=== PATIENT | male | born 1970 | race Caucasian/White ===

== ENCOUNTER 2022-04-28 10:56 | Outpatient (CLI) | payer BC, SELFPAY ==
--- NOTE | 2022-04-28 09:45 | DI.RAD_ITS ---
Exam(s) XR KNEE LT 3V AP,LAT,KEVIN EXAM: XR KNEE LT 3V AP,LAT,KEVIN CLINICAL HISTORY: left knee pain. TECHNIQUE: 2D digital imaging was performed. COMPARISON: No exams were available for comparison FINDINGS: 3 views Left knee-three views There is no evidence of fracture nor prominent joint effusion. There is significant osteoarthritic d egenerative changes evident in all 3 compartments. Some joint space narrowing and marginal osteophyt es noted. Most prominent in the patellofemoral compartment but mediolateral compartments also signif icantly affected. No osseous lesions. IMPRESSION: Osteoarthritic degenerative changes. DATA REPOSITORY: RADIATION DOSE DELIVERED:
== END 2022-04-28 10:57 | disposition home or self-care (01) ==
LOC: DIORS 10:57
PROVIDERS: Visit Provider Student in an Organized Health Care Education/Training Program
DX: M17.12 Unilateral primary osteoarthritis, left knee (principal)
CPT/HCPCS: 73562

== ENCOUNTER 2023-12-16 03:33 | Outpatient (CLI) | payer BC, SELFPAY ==
[2023-12-16 11:42] LABS: Hemoglobin A1C 5.3 % (<5.7)
[2023-12-16 12:19] LABS: Calculated LDL 144 mg/dL (<100); Cholesterol 212 mg/dL (<200); HDL Cholesterol 53 mg/dL (40-60); Triglyceride 79 mg/dL (<150)
[2023-12-16 22:25] LABS: PSA, Screening 0.6 ng/mL (<=3.5)
== END 2023-12-16 03:34 | disposition home or self-care (01) ==
PROVIDERS: PCP Nurse Practitioner Family; Visit Provider Nurse Practitioner Family
DX: Z12.5 Encounter for screening for malignant neoplasm of prostate (principal); Z13.220 Encounter for screening for lipoid disorders; Z13.1 Encounter for screening for diabetes mellitus
CPT/HCPCS: 36415; 80061; 84153; 83036

== ENCOUNTER 2024-05-29 08:12 | Day surgery (SDC) | payer BC, SELFPAY ==
--- NOTE | 2024-05-28 19:14 | W.PREOPHP ---
Assessment and Plan Assessment and plan (1) Encounter for screening colonoscopy: Status: Acute Assessment and plan: we reviewed the plan for a screening colonoscopy today, and Paul had the chance to ask any questions regarding the procedure. We discussed the risks and the benefits and we can proceed with colonoscopy. History of Present Illness History of Present Illness Chief Complaint: Screening colonoscopy Narrative: 53 y/o male with history of obesity presents for colonoscopy screening pre-op. He denies a family history of colon cancer. He denies any changes in bowel habits including bloody or black tarry stools, abdominal pain, diarrhea or constipation. He denies constitutional symptoms. He denies chest pain, palpitations, dyspnea or dyspnea with exertion. He denies prior history or family history of adverse reactions or complications with anesthesia. The patient denies any history of stroke, [place], seizures, bleeding or clotting disorders. He denies having any implanted metal in his body. Since his last office encounter, he had no significant interval changes to the history of [facility] All Active Problems Encounter for screening colonoscopy (Acute) Herpes keratitis of eye (Acute) Obesity, Class III, BMI 40-49.9 (morbid obesity) (Acute) Arthritis of knee, left (Acute) Surgical History History of hand surgery Family History Mother Hypertension Stroke Father Heart disease Maternal Grandfather Alcohol use disorder Social History Smoking/Tobacco Use Status: Never Second Hand Exposure: Yes Smoking risk assessment performed?: Yes Alcohol Intake: current Alcohol Intake frequency: a few times a month Alcohol type: beer Drug use: Never Substance use type: does not use Adopted: No Caregiver/Support person: No Foster care: No Household members: spouse, family and children Housing: house Number of Children: 2 Communication Needs: None Education Level: high school Details: diploma Do you need help understanding health information?: Never 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 Sexually active: Yes Do you think of yourself as: straight/heterosexual Current gender identity: male What is your relationship status?: How often do you talk on the phone with friends or family?: three or more times per week How often do you get together with friends or relatives?: once per week Do you belong to any clubs or organized social groups?: yes Panel score (0-1 are the most socially isolated patients): 3 What type of physical activity do you participate in: regular exercise Duration: 15-30 minutes/day Frequency: 3-4 times per week Oriana/Anabaptist: Non tenriism Special oriana needs: No Seatbelt use: always Helmet use: Yes Drive intox 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 w/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 Drive intox or w/intox racecar driver: rarely Firearms in home: Yes Firearms unloaded and locked: Yes Do you feel safe at home: Yes Do you feel safe in your relationship?: Yes Victim of physical abuse: No Victim of emotional abuse: No Victim of sexual abuse: No Additional Social history: [facility] Meds Allergies and Home Medications Allergies Allergy/AdvReac Type Severity Reaction Status Date / Time erythromycin base Allergy Mild Hives Verified 05/29/24 08:23 (Erythromycin Base) Home Medications ?Medication ?Instructions ?Recorded ?Confirmed ?Type valacyclovir 500 mg tablet 500 mg PO DAILY 12/01/23 05/29/24 History Exam Const General: cooperative, healthy appearing and not in acute distress Neck Neck: normal visual inspection, no lymphadenopathy and supple Resp Effort & Inspection: normal respiratory effort Auscultation: clear to auscultation bilaterally Cardio Jugular venous pressure: no JVD Rate: regular rate Rhythm: regular rhythm Heart Sounds: S1 normal and S2 normal GI Inspection: normal to inspection Palpation: soft, no guarding, no hernias and nontender Percussion: normal to percussion Auscultation: normal bowel sounds Neuro General: patient alert, patient awake and patient oriented x3 Psych Appearance: grossly normal
--- NOTE | 2024-05-28 19:16 | W.PM.DSUDISC ---
Date of service: 05/29/24 Time of Service: 10:05 Discharge Plan Disposition Patient Disposition: Home Condition: Good Discharge Details Reason For Visit: screening colonoscopy Attending Provider: Pablo Neal Primary Care Provider: Bon Mckeon Home Meds and New Rx's Prescriptions: Continued valacyclovir 500 mg tablet 500 mg PO DAILY Discontinued bisacodyl [Dulcolax (bisacodyl)] 5 mg tablet,delayed release (DR/EC) 5 mg PO ONCE Qty: 4 0RF Rx Instructions: Take per colonoscopy instructions provided by ordering providers office polyethylene glycol 3350 17 gram/dose powder 17 g PO ONCE Qty: 238 0RF Rx Instructions: Take per colonoscopy instructions provided by ordering providers office Discharge Instructions Additional Instructions: Paul, we were able to complete your colonoscopy today without any difficulty. Your prep was excellent, and I could see everything just fine. I did not see any signs of tumors, polyps, or anything worrisome at all. With a negative screening colonoscopy today, you are good for 10 years before your next colonoscopy. If you have any questions at all, please do not hesitate to call or ask at any point. 1. If tolerated, consume a soft, low fiber diet for 1-2 days. 2[address] Do not drive, drink alcohol, operate machinery, make critical decisions, or do activities that require coordination or balance for 24 hours. 3. Because air was put into your colon during the procedure, expelling air from your rectum (passing gas or farting) is normal. 4. You may not have a bowel movement for 1-3 days because of the colonoscopy prep. This is normal. 5. Go directly to the emergency room if you notice any of the following: Develop chills (warm to touch), or if you have a thermometer and your temperature is above 101 Difficulty breathing or difficultly swallowing Persistent vomiting Severe abdominal pain, other than gas cramps Severe chest pain Black, tarry stools Any bleeding ? exceeding one tablespoon 6. Call your physician if the site where your intravenous was started becomes red, swollen, painful, and warm to touch. 7. Your physician has reviewed your pre-procedure medications. Please continue to take those medications as previously ordered. You will be given specific information/education regarding any changes to your medications before leaving. Activity:: Activity as Tolerated Diet:: As Tolerated Discharge Orders Discharge Orders: Discharge Order (Routine); Ordered 05/28/24 Ordered By: Pablo Neal DS: Diagnosis Discharge Diagnosis (1) Encounter for screening colonoscopy: Start date: 05/29/24 Status: Acute Asessment and Plan: Negative screening colonoscopy
--- NOTE | 2024-05-28 19:19 | W.COLOREPORT ---
Date of service: 05/29/24 Time of Service: 10:08 Colonoscopy Report Date of procedure: 05/29/24 Pre-op diagnosis general: screening colonoscopy Post-op diagnosis procedure note: other (Negative screening colonoscopy) Procedure: colonoscopy Surgeon: Pablo Neal Anesthesia Type: General:No Airway Estimated blood loss (mL): 0 Pathology: none sent Complications: None Disposition: same day Indications: Daren is a 53 year old man who needs a screening colonoscopy Prep: Miralax/Dulcolax Procedure Start Time: 09:43 Procedure End Time: 09:55 Retraction Time: 7 Findings: Normal colonoscopy Procedure Description: After the induction of anesthesia, and with the patient in left lateral decubitus position, I began by performing an external anorectal exam.? Perineum and skin were normal, as was the anal verge.? There was no evidence of external hemorrhoids.? Next, I performed a digital rectal exam.? I did not appreciate any abnormal findings.? Next, I advanced a colonoscope into the rectal vault.? I performed retroflexion.? This appeared normal.? Using insufflation, I then advanced the colonoscope beyond the rectal folds and into the sigmoid colon before advancing towards the cecum.? The scope was noted to be in the cecum by identification of the ileocecal valve and appendiceal orifice.? I then began withdrawing the colonoscope using repeated irrigation as necessary for full evaluation of the colonic mucosa. ?Once the scope was withdrawn to the level of the rectum, great care was taken to examine portions of the rectal folds.? I did not see any signs of tumors, polyps, or any other worrisome pathology. the scope was withdrawn and the patient was brought to the same-day surgery recovery unit as the anesthetic wore off. ?The findings and instructions were shared with the patient prior to discharge. [place] Bowel Prep [place] Bowel Prep Right Colon: 2 Left Colon: 3 Transverse Colon: 3 Total Score: 8
[2024-05-29 08:16] VITALS: BP 124/89; PULSE 84; RESP 16; TEMP 36.6; O2SAT 99
[2024-05-29] MEDS: Lactated Ringers 1,000 ML 80 ML IV (08:39)
--- NOTE | 2024-05-29 09:31 | W.ANESPRE ---
General Info Date of Service Date Performed: 05/29/24 Height: 5 ft 11 in Weight: 139.253 kg Body Mass Index (BMI): 42.8 Surgical Procedure: Operation Date: 05/29/24 09:50 Proposed Procedure Side Surgeon devaughn Neal MD Meds Allergies and Home Medications Allergies Allergy/AdvReac Type Severity Reaction Status Date / Time erythromycin base Allergy Mild Hives Verified 05/29/24 08:23 (Erythromycin Base) Home Medication ?Medication ?Instructions ?Recorded valacyclovir 500 mg tablet 500 mg PO DAILY 12/01/23 Current Visit Medications: Current Medications Generic Name Dose Route Start Last Admin Trade Name Freq PRN Reason Stop Dose Admin Ringer's Solution 1,000 mls @ 80 mls/hr 05/29/24 06:00 05/29/24 08:39 IV 06/25/24 23:59 80 mls/hr INFUSION OC Administration IV Miscellaneous Supplies 1 each 05/29/24 06:00 Iv Access IV 06/25/24 23:59 DIRECTED OC Ondansetron HCl 4 mg 05/28/24 19:21 Ondansetron 4 Mg/2 Ml Vial IVP 06/27/24 19:20 Q4H PRN PRN Nausea / Vomiting Sodium Chloride 0 ml 05/29/24 06:00 Normal Saline Flush 10 Ml Syr IV 06/25/24 23:59 PRN PRN Sodium Chloride 0 ml 05/29/24 06:00 Normal Saline 10 Ml Vial IJ 06/25/24 23:59 DIRECTED PRN Sterile Water 0 ml 05/29/24 06:00 Water,Injection,Sterile 10 Ml Vial IJ 06/25/24 23:59 DIRECTED PRN PFSH Active Problems Active Problems: Problem Status Onset Code Encounter for screening colonoscopy Acute Z12.11 Herpes keratitis of eye Acute B00.52 Obesity, Class III, BMI 40-49.9 (morbid obesity) Acute E66.01 Arthritis of knee, left Acute M17.12 Surgical History Surgical History History of hand surgery Tobacco Smoking/Tobacco Use Status: Never Passive smoking exposure: Yes Second hand exposure: Yes Alcohol Alcohol Intake: current Alcohol intake frequency: a few times a month Alcohol type: beer Substance Use Substance use: Never Substance use type: does not use Vital Signs and Lab Results Vital Signs Most Recent Vital Signs in EMR: Most Recent Vital Signs Temp Pulse Resp BP Pulse Ox 36.6 C 84 16 124/89 99 05/29/24 08:16 05/29/24 08:16 05/29/24 08:16 05/29/24 08:16 05/29/24 08:16 Lab Results Blood Type / Crossmatch: No Data to Display Complete Blood Count: No Data to Display Complete Metabolic Panel: No Data to Display Liver Function Panel: No Data to Display Coagulation Panel: No Data to Display Cardiac Panel: No Data to Display Arterial Blood Gas: No Data to Display Venous Blood Gas: No Data to Display Pancreas Panel: No Data to Display Thyroid Panel: No Data to Display Infectious Disease: No Data to Display Blood Cultures: No Data to Display Toxicology Panel: No Data to Display Anesthesia Assessment and Plan Anesthesia History Personal History: No History of Anesthesia Complications Family History: No Family History of Anesthesia Complications Exercise Tolerance Exercise Tolerance: Metabolic Equivalents>4 Pertinent Negatives Pertinent Negatives: No Symptoms of GERD Cardiac & Pulmonary Exam Cardiac Exam: Normal S1/S2 Heart Sounds Pulmonary Exam: Clear Bilateral Breath Sounds Implantable Cardiac Device Does patient have a Pacemaker or an ICD?: No Airway Exam Known Difficult Airway: No Mallampati Class: 2 Mouth Opening: Normal (> 3cm) Thyromental Distance: Greater than 3 cm Neck Range of Motion: Full ROM Neck Circumference: Normal Teeth Condition: Normal Dentition ASA Classification ASA Score: ASA 2 Emergency Case?: No NPO Status NPO Status: NPO Clears >2 hours, Solids >8 hours Anesthesia Plan Resuscitation Status: Full Code Anesthesia Technique: General Anesthesia Airway Planned: Natural Airway Monitors Used: Standard Monitors
[2024-05-29 09:33] VITALS: BMI 42.8
[2024-05-29 10:00] VITALS: BP 96/78; PULSE 85; RESP 16; TEMP 36.9; O2SAT 96
--- NOTE | 2024-05-29 10:11 | W.ANESPOSTOP ---
Postoperative Evaluation Date, Time and Location Date Performed: 05/29/24 Time Performed: 10:11 Patient Location: Day Surgery Unit Vital Signs Most Recent Imported Vital Signs: Most Recent Vital Signs Temp Pulse Resp BP Pulse Ox 36.9 C 85 16 96/78 L 96 05/29/24 10:00 05/29/24 10:00 05/29/24 10:00 05/29/24 10:00 05/29/24 10:00 Pain Score Most Recent Pain Score: Most Recent Pain Score Pain Level 0 05/29/24 10:00 Assessment Mental Status: Awake (Alert & Oriented to Patient Baseline) Airway and Respiratory Function: Patent airway with normal (patient baseline) respiratory exam Cardiovascular Function: Hemodynamically Stable Hydration Status: Adequately Hydrated Nausea & Vomiting: No Nausea or Vomiting Pain: Pt. Denies Any Pain Peripheral Nerve Block: Patient did not receive a nerve block
[2024-05-29 10:26] VITALS: BP 96/78; PULSE 85; RESP 16; TEMP 36.9; O2SAT 96
== END 2024-05-29 10:39 | disposition home or self-care (01) ==
LOC: SUR 08:12
PROVIDERS: PCP Nurse Practitioner Family; Visit Provider Surgery
PROC: 0DJD8ZZ Inspection of Lower Intestinal Tract, Via Natural or Artificial Opening Endoscopic (ICD-10-PCS; CPT 45378; principal; 2024-05-29 09:45)
DX: Z12.11 Encounter for screening for malignant neoplasm of colon (principal)
CPT/HCPCS: 45378; J2001; J2704

== ENCOUNTER 2024-12-21 02:22 | Outpatient (CLI) | payer BC, SELFPAY ==
[2024-12-21 11:07] LABS: Calculated LDL 129 mg/dL (<100); Cholesterol 199 mg/dL (<200); HDL Cholesterol 50 mg/dL (>or=40); Triglyceride 101 mg/dL (<150)
== END 2024-12-21 02:23 | disposition home or self-care (01) ==
PROVIDERS: PCP Nurse Practitioner Family; Visit Provider Nurse Practitioner Family
DX: Z13.220 Encounter for screening for lipoid disorders (principal)
CPT/HCPCS: 36415; 80061